=== PATIENT | female | born 1955 | race Caucasian/White ===

== ENCOUNTER 2022-05-29 08:07 | Outpatient (CLI) | payer OTHER, SELFPAY ==
--- NOTE | 2022-05-29 07:18 | BI_ITS ---
MAMMOGRAPHY - BILATERAL SCREENING REASON FOR EXAM: Female, 67 years old. Routine annual screening examination. PERTINENT HISTORY: Non-contributory. TECHNIQUE: Digital bilateral breast vandana (3D mammographic acquisition) in the CC and MLO projections. 2-D mediolateral oblique (MLO) and craniocaudad (CC) views of both breasts were obtained. CAD: Full Field Digital Mammography with Computer Added Detection was performed. COMPARISON: Screening mammogram from outside hospital from 05/16/2020, 05/02/2019. Diagnostic left breast ultrasound and mammogram from 05/23/2019. FINDINGS: Breast Composition: There are scattered areas of fibroglandular density. There are no dominant masses or suspicious calcifications. Stable scattered benign-appearing bilateral breast calcifications. No other significant abnormalities are identified. There has been no significant change since the prior study. BI/SCRN MAMM (CAD)W/VANDANA BILAT IMPRESSION: Stable bilateral screening mammogram. Yearly follow-up mammogram recommended. (A) ASSESSMENT CATEGORY: BIRADS Category 2: Benign. A letter regarding these results will be sent to the patient by the facility within 30 days. Approximately 10% of breast cancers are not detected by mammography. A normal mammogram should not delay biopsy of a clinically suspicious abnormality. Electronically Signed: Akash Escobar, at 11:19 EST ,
== END 2022-05-29 23:59 | disposition home or self-care (01) ==
LOC: OPBI 08:07
PROVIDERS: PCP Family Medicine; Visit Provider Family Medicine
DX: Z12.31 Encounter for screening mammogram for malignant neoplasm of breast (principal)
CPT/HCPCS: 77063; 77067

== ENCOUNTER → 2022-08-17 | Outpatient (CLI) | payer OTHER, SELFPAY ==
--- NOTE | 2022-08-17 12:52 | RAD_ITS ---
EXAM: XR LEFT KNEE COMPLETE, 4 OR MORE VIEWS CLINICAL INDICATION: PAIN TECHNIQUE: Four or more views of the left knee. This report was created using Future Simple report generation technology. COMPARISON: None. FINDINGS: BONES/JOINTS: There is narrowing of the medial knee joint. There is a small suprapatellar joint effusion present. No acute fracture. No subluxation. Normal alignment. No sclerotic or destructive changes observed. SOFT TISSUES: Unremarkable. No soft tissue swelling or gas. No radiopaque foreign body. RAD/Knee 4 or More Views IMPRESSION: Mild degenerative changes with narrowing of the medial knee joint. There is a small suprapatellar joint effusion. There are no acute osseous abnormalities. Electronically Signed: Joss White MD at 16:42 EST ,
== END | disposition home or self-care (01) ==
LOC: MTRAD 12:50
PROVIDERS: PCP Family Medicine; Referring Provider Family Medicine; Visit Provider Family Medicine
DX: M25.562 Pain in left knee (principal)
CPT/HCPCS: 73564

== ENCOUNTER → 2022-09-02 | Outpatient (CLI) | payer OTHER, SELFPAY ==
[2022-09-02 17:30] LABS: Basophil# 0.08 X10^3/uL; Eosinophil# 0.37 X10^3/uL; Eosinophils% 4.6 % (0-5); Hemoglobin 15.4 g/dL (12.0-15.0); Lymphocyte % 25.1 % (19-41); Mean Corp Hgb Conc 33.5 g/dL (32-36); Mean Corpuscular Hgb 31.9 pg (27.0-32.0); Mean Corpuscular Volume 95.2 fL (81-99); Mean Platelet Vol. 11.2 fl (6.2-12.0); Monocyte# 0.52 X10^3/uL; Monocyte% 6.5 % (0-10); NRBC Flagged by Analyzer 0 % (0-5); Neutrophil # 4.97 X10^3/uL (2.7-7.7); Neutrophil % 62.5 % (47-70); Platelet Count 330 K/mm3 (150-450); RBC Distribution Width CV 13.1 % (11.6-14.6); RBC Distribution Width SD 46.1 fl (35.1-43.9); Red Blood Count 4.83 M/mm3 (4.2-5.4)
[2022-09-02 18:08] LABS: AST(SGOT) 20 U/L (15-37); Alanine Aminotransfer ALT/SGPT 34 U/L (13-56); Albumin, Serum 3.6 g/dL (3.2-5.0); Alkaline Phosphatase 61 U/L (45-117); Anion Gap 6 (5-15); BUN 20 mg/dL (7-18); BUN/Creat Ratio 24.5 RATIO (10-20); Calcium,Total 9.2 mg/dL (8.5-10.1); Chloride 102 mmol/L (98-107); Creatinine, Serum 0.82 mg/dL (0.55-1.02); EST Glomerular Filtration Rate 74 mL/min (>60); Est Glom Filt Rate - Afr Amer 90 mL/min (>60); Globulin 3.6 g/dL (2.2-4.2); Glucose 93 mg/dL (74-106); Potassium 4.4 mmol/L (3.5-5.1); Protein, Total 7.2 g/dL (6.4-8.2); Sodium Level 138 mmol/L (136-145)
[2022-09-02 18:13] LABS: International Normalized Ratio 1.1; Partial Thromboplast Time 34.8 Seconds (24.1-36.2); Prothrombin Time (Protime)PT. 13.8 SECONDS (11.7-14.9)
== END | disposition home or self-care (01) ==
LOC: BFHLAB 14:58
PROVIDERS: PCP Family Medicine; Visit Provider Family Medicine
DX: Z01.818 Encounter for other preprocedural examination (principal)
CPT/HCPCS: 36415; 80053; 85025; 85610; 85730

== ENCOUNTER 2022-09-08 05:54 | Day surgery (SDC) | payer OTHER, SELFPAY ==
[2022-09-08 06:24] VITALS: BP 138/81; PULSE 63; RESP 18; TEMP 36.3; O2SAT 97; BMI 39.1
[2022-09-08] MEDS: Lactated Ringers 1,000 ML 15 ML IV ×2 (06:28→09:03)
--- NOTE | 2022-09-08 07:12 | HP.PCM_ITS ---
History and Physical Date of Admission: 09/08/22 [facility] [address] [place] [address] OFFICE VISIT Date of Service:? 08/31/22 MR#: [id number] Acct: [id number] Name:NY EARLY Rep #: [id number] : 1955 ? ? Provider: Dr. Cory Olea, DO Age/Sex:? 67/F ? ? Location: [facility] Status: Signed Intake Vital Signs ? 06/11/1517:23 08/31/2307:05 Height 5 ft 2 in 5 ft 2 in Weight: ? 217 lb BMI ? 39.6 Intake Visit Reasons:?LEFT KNEE Chief Complaint: left knee Accompanied by: Self Allergies benazepril HCl [From Lotensin] Allergy (Verified 06/11/15 17:23) Rashsertraline HCl [From Zoloft] Adverse Reaction (Verified 06/11/15 17:23) Diarrhea Medications aspirin 81 mg chewable tablet 81 mg PO DAILY@0800 06/11/15 [History Confirmed 08/31/22] metoprolol tartrate 25 mg tablet 12.5 mg PO BID 06/11/15 [History Confirmed 08/31/22] simvastatin 20 mg tablet 20 mg PO QHS 06/11/15 [History Confirmed 08/31/22] amlodipine 2.5 mg tablet tablet PO 08/31/22 [History Confirmed 08/31/22] antiarthritic combination no.2 900 mg tablet (glucosamine-chondroitin) mg PO 08/31/22 [History Confirmed 08/31/22] ascorbate calcium (vitamin C) 500 mg tablet 500 mg PO DAILY 08/31/22 [History Confirmed 08/31/22] wigpmhhn-ojh-GF 200 mcg-vit K 100 mcg-lycop 500 [id number] capsule (Daily Multivitamin) cap PO 08/31/22 [History Confirmed 08/31/22] omega 4-xwz-xdw-fish oil 300 mg-1,000 mg capsule (Fish Oil) 1 cap PO DAILY 08/31/22 [History Confirmed 08/31/22] phentermine 8 mg tablet 8 mg PO ONCE 08/31/22 [History Confirmed 08/31/22] PFSH Surgical History?(Updated 08/31/22 @ 08:10 by Jennifer Redd) History of tubal ligation Social History?(Updated 08/31/22 @ 08:11 by Jennifer Redd) Smoking Status:? Former smoker quit date: 07/05/14 alcohol intake:? former year quit: 2008 HPI LEFT KNEE Details: Parts of this documentation were recorded by a scribe, this documentation accurately reflects the service provided and the decisions made by me, Dr. Cory Olea, DO 08/31/22 0752. [place] HANSON is a 67 year old F NEW patient here today for left knee injury. DOI: 07/29/22 She states that she was going upstairs and she forgot something so she twisted and felt/heard a pop in the knee and had instant pain. She states that since the injury she has had painful popping/locking of the knee. she can not fully bend the knee.? She has been wearing a knee brace constantly for support. She states that with knee flexion she feels like something is blocking her. She has xrays in the chart and an MRI on a disc here in the office for review. She has been taking Tylenol and ibuprofen for her pain since the injury. Denies any past surgery or injections of the left knee. She states the pain is worse lateral . Ortho Exam General General: Yes no acute distress Neurologic: Yes alert and Yes oriented x3 Psychologic: Yes reasonable and appropriate Right Knee Patella Translation: 1 Left Knee Date of injury: 07/29/22 Skin/Wound: Yes CDI, No ecchymosis, No erythema and Yes swelling Homans Sign: No 1+: Effusion Knee ROM: No ROM-Extension -20 to 0 (lacking 10) and No ROM-Flexion 0-140 (55) Examination: No med jt line tenderness, Yes Lat jt line tenderness, Yes Pain with flexion, Yes Mohan's Test, Yes Montilla's and No TTP Pes Anserine Stability: NML: Anterior Drawer, NML: Posterior Drawer, NML: Valgus 30 and NML: Varus 30 Apprehension with Lateral Translation: No Patella Translation: 1 Patella Grind: Yes KNEE: mild pain with medial patti Head: Normocephalic Atraumatic Chest: symmetrical rise, non-labored breathing, no audible wheeze Abdomen: no guarding, non-rigid Supplemental Info 08/26/2022 MRI left knee report from [facility]: Joint effusion suspected vertical tear posterior horn medial meniscus may be bucket-handle tear 08/17/2022 x-ray left knee: Medial joint space narrowing, mild trochlear spurring Coding Level of Care Code Off vis,new,level 3 Diagnoses Tear of medial meniscus of left knee? S83.242A Assessment and Plan Assessment and Plan (1) Tear of medial meniscus of left knee: ?Status:?Acute Plan Obtained X-rays of patient's left knee. Personally reviewed x-rays. There is no obvious fracture, dislocation, or lucency noted. Patient educated that she does have arthritis of the medial side of the knee and on her MRI she has a medial meniscus tear. Educated that she may benefit from a left knee medial partial meniscectomy. Reviewed the pre-operative plans with the patient. Risks and benefits of the procedure were fully explained, including but not limited to infection, neurovascular injury, continued pain, arthritis, stiffness, need for further surgery, re-injury, DVT, PE, general risks of anesthesia, and loss of limb or life. The patient understands all the risks and does wish to proceed with written consent. She would need to stop the ibuprofen and Aleve 7 days prior to surgery. She will be able to walk on the knee right away as tolerated. Will need medial clearance as she does have some cardiac history. Her PCP has her off work until Wednesday. She would like to remain off work until 2 weeks post op. ? Follow up 2 weeks post op or sooner if pain, swelling, numbness or associated symptoms, or concerns develop.? All questions answered. Patient in agreement of plan. 08/31/22 0930 <Electronically signed by Cory Olea DO> Date Cory Olea DO I have examined the patient and the H&P has been reviewed. There are no clinical changes since date of exam.
[2022-09-08] MEDS: Cefazolin 2 GM in 0.9% Normal Saline 100 ML IV (07:22)
[2022-09-08] MEDS: Bupiv/Epi 0.25% 30 ML Vial (07:44)
[2022-09-08] MEDS: Epinephrine (1 mg/ml) 1 MG/ML VIAL (07:45)
[2022-09-08] MEDS: MethylPREDNISolone Acetate 40 MG/ML Vial IM (08:22)
[2022-09-08] MEDS: Bupivacaine 0.25% 30 ML Vial (08:23)
--- NOTE | 2022-09-08 08:25 | OP.PCM_ITS ---
Operative Report Date of Procedure: 09/08/22 Preop diagnosis: Left knee medial meniscal tear Postoperative diagnosis: Left knee complex medial meniscus tear posterior horn, radial tear body lateral meniscus diffuse grade III chondromalacia medial compartment grade 2 the remainder of the knee Procedure: Left knee arthroscopic partial medial partial lateral meniscectomy Anesthesia: General Estimated blood loss: 5 mL Tourniquet time: 30 minutes 300 mmHg Complications: none Indication for procedure: 67-year-old female patient who has had ongoing left knee pain with mechanical symptoms who did have MRI evidence of medial meniscus tear and the patient did wish to proceed with an elective arthroscopic surgery to attempt to alleviate the symptoms. Risk benefits and alternatives of the procedure were reviewed including risk of bleeding infection nerve artery tissue damage need for further surgery continued pain and expected postoperative course. Procedure: The patient was met in the preoperative holding area. The operative extremity was identified by both patient and physician and family and marked. Patient was brought back to the operating room on a wheeled cart and transferred to the operating table in the supine position. Anesthesia was started. A well- padded tourniquet was placed on the operative extremity. A lower extremity leg mabry was secured to the operative extremity. The contralateral extremity was well-padded and the end of the bed was flexed to 90 degrees. The patient was prepped and draped in the usual sterile fashion. A timeout was called to ensure the proper patient, procedure, and extremity were being contemplated. 0.5% Marcaine with epinephrine was injected into the planned incisional areas under the skin only. An Esmarch was used to exsanguinate the extremity and the tourniquet was inflated. An 11 blade scalpel was used to make a stab incision in the anterior lateral portal. The arthroscope was inserted into the intercondylar notch and inflow and outflow tubes were attached. Arthroscopic visualization began. The medial compartment was entered. An 18-gauge spinal needle was used to establish the placement for anterior medial portal. An 11 blade scalpel was used to make a stab incision. Blunt probe was inserted followed by a meniscal probe. Immediately there was noted to be high grade 3 cartilage wear of the medial compartment both medial femoral condyle and medial tibial plateau General chondroplasty was performed of any loose cartilage fraying and partial synovectomy was performed for exposure there is no to be complex tear in the posterior horn medial meniscus that extended back nearly the entire depth of the meniscus. With use of arthroscopic biting instruments and shaver and ArthroCare wand partial medial meniscectomy was performed the ACL was found to be intact. The lateral compartment was entered there is no to be a discoid variant meniscus with a small radial tear of the body with use of a shaver partial lateral meniscectomy was performed till the tear was removed was noted to be grade 2 approaching grade 3 cartilage wear of the lateral compartment the arthroscope was switched to the medial portal to complete the procedure. The medial and lateral gutters were inspected and were free of loose bodies. The patellofemoral joint was inspected and grade 2 approaching grade 3 cartilage wear. There was good patellar tracking. The knee was thoroughly irrigated and drained. An intra-articular injection with 5 cc 0.5% Marcaine plain and 40 mg of Depo-Medrol was injected intra-articularly. The arthroscope was removed the portals were closed with 3-0 nylon arthroscopic stitches. Followed by Xeroform 4 x 4's ABDs web roll and an Magan wrap. The tourniquet was let down and the drapes were removed. All counts were correct. The patient was brought back to the PACU in stable condition.
--- NOTE | 2022-09-08 08:30 | DCINST_ITS ---
Discharge Instructions Diet Discharge Diet: No restrictions Activity Weight Bearing Status: Weight bearing as tolerated Dressing / Incision Additional Dressing/Incision Instructions:: Ice and elevate next 72 hours .keep dressing on clean and dry for 48 hours then may remove begin showering daily but do not submerge in tub or pool. After shower may apply Band-Aids . Encourage knee range of motion weightbearing as tolerated, use crutches until confident in knee then may discontinue. No strenuous activity. When not ambulating keep iced and elevated next 72 hours. Do not mix pain medication with recreational drugs or alcohol only take as prescribed can be addictive and abusive, call with any questions or concerns. Follow Up Care Please Follow Up With: Cory Olea DO When: 2 weeks Test Results: Test results from this visit will be discussed in further detail at your follow- up appointment, if applicable. Discharge Plan Admission Primary Reason for Your Visit: Left knee arthroscopy Attending Provider: Cory Olea Primary Care Provider: Sara Carrera Discharge Orders/Prescriptions Prescriptions: New oxycodone 5 mg tablet 5 - 10 mg PO Q4H PRN (Reason: pain) 7 Days Qty: 30 0RF No Action amlodipine 2.5 mg tablet 1 tablet PO DAILY phentermine 8 mg tablet 8 mg PO DAILY Rx Instructions: AM glucosamine-chondroitin 900 mg tablet 900 mg PO DAILY omega 9-hmu-caw-fish oil [Fish Oil] 300-1,000 mg capsule 1 cap PO DAILY ascorbate calcium (vitamin C) 500 mg tablet 500 mg PO DAILY Daily Multivitamin 200-100-500 mcg capsule 1 cap PO DAILY simvastatin 20 MG tablet 20 mg PO QHS aspirin 81 MG tablet,chewable 81 mg PO DAILY@0800 metoprolol tartrate 25 MG tablet 12.5 mg PO BID Referrals / Follow Up: Sara Carrera DO [Primary Care Provider] - Disposition Disposition (needs filled in before D/C Order can be placed): Home, Self Care
[2022-09-08 08:36] VITALS: BP 138/81; BP 156/90; PULSE 74; RESP 17; TEMP 36; O2SAT 92
[2022-09-08 08:50] VITALS: BP 126/80; BP 138/81; PULSE 72; RESP 16; O2SAT 95
[2022-09-08 09:00] VITALS: BP 128/61; BP 138/81; PULSE 66; RESP 16; O2SAT 93
[2022-09-08 09:15] VITALS: BP 128/65; BP 138/81; PULSE 62; RESP 16; TEMP 36.1; O2SAT 95
[2022-09-08] MEDS: oxyCODONE 5 MG Tablet PO (09:39)
[2022-09-08 10:59] VITALS: BP 138/81; BP 140/86; PULSE 65; RESP 16; TEMP 36.2; O2SAT 96
== END 2022-09-08 11:07 | disposition home or self-care (01) ==
LOC: SDC 05:55 → AC 05:56
PROVIDERS: PCP Family Medicine; Referring Provider Orthopaedic Surgery; Visit Provider Orthopaedic Surgery
PROC: (CPT 29870; principal; 2022-09-08 07:10)
DX: S83.242A Other tear of medial meniscus, current injury, left knee, initial encounter (principal); Z87.891 Personal history of nicotine dependence; X50.1XXA Overexertion from prolonged static or awkward postures, initial encounter; E78.00 Pure hypercholesterolemia, unspecified; I10 Essential (primary) hypertension; G47.30 Sleep apnea, unspecified; Z99.89 Dependence on other enabling machines and devices; Z87.19 Personal history of other diseases of the digestive system; Z92.241 Personal history of systemic steroid therapy
CPT/HCPCS: 29880; 01400; J7120; J2405

== ENCOUNTER → 2022-10-24 | Outpatient (CLI) | payer OTHER, SELFPAY ==
[2022-10-24 10:46] LABS: Cholesterol 198 mg/dL (200); High Density Lipoprotein 73 mg/dL; Triglycerides 190 mg/dL; Very Low Density Lipoprotein 38 mg/dL (5-40)
[2022-10-26 08:23] LABS: Vitamin D,25 Hydroxy 42.4 ng/mL
== END | disposition home or self-care (01) ==
LOC: LAB 09:46
PROVIDERS: PCP Family Medicine; Visit Provider Family Medicine
DX: E78.2 Mixed hyperlipidemia (principal); E55.9 Vitamin D deficiency, unspecified
CPT/HCPCS: 36415; 80061; 82306

== ENCOUNTER → 2023-06-04 | Outpatient (CLI) | payer OTHER, SELFPAY ==
--- NOTE | 2023-06-04 09:48 | BI_ITS ---
MAMMOGRAPHY - BILATERAL SCREENING REASON FOR EXAM: Female, 68 years old. Routine annual screening examination. PERTINENT HISTORY: Non-contributory. TECHNIQUE: Digital bilateral breast vandana (3D mammographic acquisition) in the CC and MLO projections. 2-D mediolateral oblique (MLO) and craniocaudad (CC) views of both breasts were obtained. CAD: Full Field Digital Mammography with Computer Added Detection was performed. COMPARISON: Comparison is made with prior mammogram dated May 29, 2022. FINDINGS: Breast Composition: There are scattered areas of fibroglandular density. There are no dominant masses or suspicious calcifications. Stable small benign-appearing bilateral axillary lymph nodes. No other significant abnormalities are identified. There has been no significant change since the prior study. BI/SCRN MAMM (CAD)W/VANDANA BILAT IMPRESSION: Stable bilateral screening mammogram. Yearly follow-up mammogram recommended. (A) ASSESSMENT CATEGORY: BIRADS Category 2: Benign. A letter regarding these results will be sent to the patient by the facility within 30 days. Approximately 10% of breast cancers are not detected by mammography. A normal mammogram should not delay biopsy of a clinically suspicious abnormality. [id number] Electronically Signed: Gentry Mcclain MD at 10:55 EST ,
== END | disposition home or self-care (01) ==
PROVIDERS: PCP Family Medicine; Visit Provider Family Medicine
DX: Z12.31 Encounter for screening mammogram for malignant neoplasm of breast (principal)
CPT/HCPCS: 77063; 77067

== ENCOUNTER 2023-12-05 13:35 | Emergency (ER) | payer OTHER, SELFPAY ==
[2023-12-05 13:36] VITALS: BP 176/85; PULSE 74; RESP 16; TEMP 36; O2SAT 97; BMI 40.3
--- NOTE | 2023-12-05 14:27 | RAD_ITS ---
STUDY: XR Chest 1 View 12/05/2023 2:40 PM REASON FOR EXAM: Female, 68 years old. cough COMPARISON: 06/11/2015 TECHNIQUE: XR Chest 1 View FINDINGS: There is no demonstrated pleural abnormality. Normal heart size. Normal mediastinum. Normal frederick. Prominent appearing increased interstitial lung markings. Normal visualized pulmonary arteries. There is atherosclerotic calcification of the aortic arch with tortuosity. There are diffuse degenerative changes of the visualized thoracic spine. There is degenerative osteoarthritis of the bilateral shoulders. There are no acute findings of the upper abdomen. RAD/Chest 1 View (Portable) IMPRESSION: There are no acute findings. Electronically Signed: Marc Buckley MD at 14:59 EDT ,
--- NOTE | 2023-12-05 14:41 | EX.ED.GENINJ ---
HPI History of Present Illness Chief Complaint: Chest Other Narrative Narrative: 68-year-old female presenting with her throat burning. She has a foreign body sensation. She tried to take a probiotic pill last evening and it got stuck in her throat. She states it felt irritated. This morning she states it came out and what looked like a blob. Patient is not having any shortness of breath. She does have a little bit of a cough since last night. She is able to drink fluids and eat without difficulty. She is tolerating her own secretions. [facility] Medical History History of steroid therapy History of IBS Former smoker Sleep apnea CPAP (continuous positive airway pressure) dependence History of irregular heartbeat Hypertension Home Medications ?Medication ?Instructions ?Recorded ?Last Taken ?Type aspirin 81 mg chewable tablet 81 mg PO DAILY@0800 06/11/15 06/11/15 History simvastatin 20 mg tablet 20 mg PO QHS 06/11/15 06/10/15 History antiarthritic combination no.2 900 900 mg PO DAILY 08/31/22 Unknown History mg tablet (glucosamine-chondroitin) ascorbate calcium (vitamin C) 500 500 mg PO DAILY 08/31/22 Unknown History mg tablet uqvpydlr-hlk-KF 200 mcg-vit K 100 1 cap PO DAILY 08/31/22 Unknown History mcg-lycop 500 [id number] capsule (Daily Multivitamin) omega 7-nau-mtb-fish oil 300 1 cap PO DAILY 08/31/22 Unknown History mg-1,000 mg capsule (Fish Oil) cyclobenzaprine 5 mg tablet 5 mg PO TID PRN 11/25/22 Unknown History phentermine 37.5 mg tablet mg PO 01/06/23 Unknown History ibuprofen 200 mg capsule 200 mg PO Q6H PRN 05/10/23 Unknown History meloxicam 15 mg tablet 15 mg PO DAILY Pain #14 tabs 06/11/23 Unknown Rx amlodipine 5 mg tablet 5 mg PO DAILY 12/05/23 Unknown History metoprolol tartrate 50 mg tablet 50 mg PO BID 12/05/23 Unknown History Allergy/AdvReac Type Severity Reaction Status Date / Time benazepril HCl (From Allergy Rash Verified 12/05/23 13:37 Lotensin) sertraline HCl (From Zoloft) AdvReac Diarrhea Verified 12/05/23 13:37 Surgical History History of bilateral cataract extraction History of tubal ligation Social History Smoking Status: Former smoker quit date: 07/05/14 alcohol intake: former year quit: 2008 ROS ROS ED Constitutional Constitutional ED: Denies chills, fever(s) or sweats Eyes Eyes: Denies blurry vision or change in vision ENT ENT ED: Reports sore throat; Denies ear pain Cardiovascular Cardiovascular: Denies chest pain, palpitations or racing heartbeat Respiratory/Chest Respiratory/Chest: Denies cough, dyspnea or sputum Gastrointestinal Gastrointestinal: Denies abdominal pain, constipation, diarrhea, nausea or vomiting Genitourinary Genitourinary ED: Denies dysuria, hematuria or urinary frequency Musculoskeletal Musculoskeletal: Denies arthralgias, myalgias or neck pain Integumentary Denies abscess, Abrasions or rash Neurologic Neurologic: Denies headache(s), paresthesias or weakness Psychiatric Psychiatric: Denies anxiety, depression, suicidal ideation or suicidal thoughts Endocrine Endocrinology: Denies polydipsia or polyuria EXAM Physical Exam Const Vital Signs: 12/05/23 13:36 12/05/23 13:46 Temperature 96.8 F L Temperature Source Temporal Pulse Rate 74 Respiratory Rate 16 Respiratory Effort Normal Non-Labored Blood Pressure 176/85 H Blood Pressure Mean 115 Pulse Ox 97 Oxygen Delivery Method Room Air Positive well nourished General Appearance ED: NAD HEENT HEENT Narrative: No stridor. atraumatic Eyes PERRL and EOMs intact bilaterally Chest Wall inspection of chest normal and palpation of chest normal Resp normal respiratory effort and clear to auscultation bilaterally Auscultation: Negative for rales, rhonchi or wheezes Cardio regular rhythm GI normal to inspection, nondistended, normoactive bowel sounds Neuro oriented x3 and CN's II-XII intact bilaterally Motor Exam: strength 5/5 throughout Psych mental status grossly normal and thought process normal Skin no rashes or lesions noted MDM MDM MDM Narrative Medical decision making narrative: 68-year-old female presenting with sore throat and irritation. She states she had a pill stuck in her throat for the evening. She is not having shortness of breath. She is 97% on room air. Heart rate 74, respirate 16. Afebrile. On examination her lungs are clear to auscultation bilaterally. There is no stridor noted on examination. She is not dyspneic. She request a chest x-ray because her family told her she might have aspiration pneumonia. Chest x-ray on my interpretation shows no acute process. Radiology interprets this and agrees. Counseled patient she might have some irritation to the esophagus for couple of days. Return precautions were discussed. Impression: 1. Globus hystericus Lab Data Attestation: I reviewed the patient's lab results. Radiography Diagnostic Testing: Clinical Impression(s) from Imaging Studies Chest X-Ray 12/05/23 14:27 IMPRESSION: There are no acute findings. Electronically Signed: Marc Buckley MD at 14:59 EDT Reading Location ID and State: [facility] [place] / [place] , Service support , Discharge Plan Triage Chief Complaint: Chest Other ED Provider: Adi Braswell Dx/Rx/DC Orders Prescriptions: No Action glucosamine-chondroitin 900 mg tablet 900 mg PO DAILY omega 4-one-dat-fish oil [Fish Oil] 300-1,000 mg capsule 1 cap PO DAILY ascorbate calcium (vitamin C) 500 mg tablet 500 mg PO DAILY Daily Multivitamin 200-100-500 mcg capsule 1 cap PO DAILY cyclobenzaprine 5 mg tablet 5 mg PO TID PRN phentermine 37.5 mg tablet PO ibuprofen 200 mg capsule 200 mg PO Q6H PRN simvastatin 20 MG tablet 20 mg PO QHS aspirin 81 MG tablet,chewable 81 mg PO DAILY@0800 amlodipine 5 mg tablet 5 mg PO DAILY metoprolol tartrate 50 mg tablet 50 mg PO BID meloxicam 15 mg tablet 15 mg PO DAILY Qty: 14 0RF Rx Instructions: Do not take in conjunction with other NSAIDs. Tylenol is okay. Primary Care Provider: Sara Carrera Referrals: Sara Carrera DO [Primary Care Provider] - Print Language: French
[2023-12-05 15:35] VITALS: BP 154/78; PULSE 78; RESP 18; TEMP 36.1; O2SAT 96
== END 2023-12-05 15:40 | disposition home or self-care (01) ==
PROVIDERS: Emergency Provider Student in an Organized Health Care Education/Training Program; PCP Family Medicine; Visit Provider Student in an Organized Health Care Education/Training Program
DX: F45.8 Other somatoform disorders (principal); Z87.891 Personal history of nicotine dependence; G47.30 Sleep apnea, unspecified; Z99.89 Dependence on other enabling machines and devices; I10 Essential (primary) hypertension; Z79.82 Long term (current) use of aspirin; Z79.899 Other long term (current) drug therapy; Z98.51 Tubal ligation status; Z98.41 Cataract extraction status, right eye; Z98.42 Cataract extraction status, left eye
CPT/HCPCS: 71045; 93005; 99282

== ENCOUNTER → 2024-01-07 | Outpatient (CLI) | payer OTHER, SELFPAY ==
--- NOTE | 2024-01-07 12:40 | CDU_ITS ---
Reason For Study: Dizziness Rt. Velocities/BP Lt. Velocities/BP Prox CCA 56.3/17.6 cm/sec. Prox CCA 80.6/17.9 cm/sec. Mid CCA 55.4/19.5 cm/sec. Mid CCA 67.6/23.2 cm/sec. Dist CCA 56.3/21.4 cm/sec. Dist CCA 58.2/18.5 cm/sec. Prox ICA 60.1/21.4 cm/sec. Prox ICA 103.4/41.3 cm/sec. Mid ICA 55.4/21.4 cm/sec. Mid ICA 56.7/27.0 cm/sec. Dist ICA 64.8/33.6 cm/sec. Dist ICA 74.3/29.2 cm/sec. Rt. ICA/CCA = 1.2. Lt. ICA/CCA = 1.5. Prox ECA 47.8/11.0 cm/sec. Prox ECA 86.9/12.1 cm/sec. Rt. Vert. 18.0/8.1 cm/sec. Lt. Vert. 24.5/9.9 cm/sec. Right Extracranial There is heterogeneous, irregular atherosclerotic plaque noted in the right common carotid artery. There is heterogeneous, irregular atherosclerotic plaque noted in the right internal carotid artery. There is intimal thickening but no significant atherosclerotic plaque noted in the right external carotid artery. Antegrade flow is noted in the right vertebral artery. Left Extracranial There is intimal thickening but no significant atherosclerotic plaque noted in the left common carotid artery. There is heterogeneous, irregular atherosclerotic plaque noted in the left internal carotid artery. There is heterogeneous, irregular atherosclerotic plaque noted in the left external carotid artery. The atherosclerotic plaque causes acoustic shadowing. Antegrade flow is noted in the left vertebral artery. Procedure Carotid Duplex [id number]. This is a Carotid Duplex examination using B-mode, color flow and specral Doppler. The exam was diagnostic. Exam performed in department. VL/Carotid Duplex Ultrasound Interpretation Summary Mild (<50%) stenosis right extracranial internal carotid. Mild (<50%) stenosis left extracranial internal carotid. Patent and antegrade vertebrals bilaterally. Ordering Physician: Sara Carrera Referring Physician: Sara Carrera Performed By: Serge Ogden RVT
== END | disposition home or self-care (01) ==
PROVIDERS: PCP Family Medicine; Referring Provider Family Medicine; Visit Provider Family Medicine
DX: R42 Dizziness and giddiness (principal); R09.89 Other specified symptoms and signs involving the circulatory and respiratory systems; I65.22 Occlusion and stenosis of left carotid artery; I10 Essential (primary) hypertension
CPT/HCPCS: 93880

== ENCOUNTER → 2024-05-27 | Outpatient (CLI) | payer MEDICARE, SELFPAY ==
--- NOTE | 2024-05-27 08:35 | MRI_ITS ---
STUDY: MRI LUMBAR SPINE WITHOUT CONTRAST REASON FOR EXAM: Female, 69 years old. Low back pain. TECHNIQUE: Standardized fat and water weighted pulse sequences were obtained in the sagittal and axial planes. COMPARISON: CT abdomen and pelvis with contrast 11/26/2012. Lumbar spine radiographs 04/25/2024. FINDINGS: T10-T11: (Sagittal only). T10 inferior endplate is not included. Normal T11 superior endplate. Normal disc height, hydration and morphology. No ventral extradural defect. Normal central canal. Bilateral intervertebral neuroforamina are not included in the images. T11-T12 and T12-L1: (Sagittal only). Normal endplates. Normal disc height, hydration and morphology. No ventral extradural defects. Normal central canal and bilateral intervertebral neural foramina. Normal lumbar lordosis. There is no substantial scoliosis. Normal conus medullaris that terminates at the T12-L1 disc space level. L1-2: Normal endplates. Minimal disc space height narrowing. Prominent midline ventral extradural defect behind the posterior inferior corner of L1 vertebral body may represent small disc protrusion. Normal facet joints. Capacious central canal. Normal bilateral lateral recesses. Normal bilateral intervertebral neuroforamina. L2-3: Normal endplates. Normal disc height, hydration and morphology. Normal bilateral facet joints. Normal central canal and bilateral lateral recesses. Normal bilateral intervertebral neural foramina. L3-4: Normal endplates. Normal disc height, hydration and morphology. Normal facet joints. Prominent dorsal epidural lipomatosis. Moderate central canal stenosis with an AP canal diameter of 7 mm. Normal bilateral lateral recesses. Normal bilateral intervertebral neuroforamina. L4-5: Normal endplates. Normal disc height, hydration and morphology. Moderate bilateral degenerative facet arthropathy. Mild dorsal epidural lipomatosis. Pronounced central canal stenosis with an AP canal diameter of 3 mm. Mild stenosis of the bilateral lateral recesses. Normal bilateral intervertebral neuroforamina. L5-S1: Normal endplates. Normal disc height, hydration and morphology. Moderate bilateral degenerative facet arthropathy. Normal central canal and bilateral lateral recesses. Normal bilateral intervertebral neuroforamina. Normal visualized sacral ala. Normal visualized paraspinous soft tissue structures. MRI/Spine Lumbar (Routine) IMPRESSION: 1. Pronounced central canal stenosis at L4-L5 disc space level with an AP canal diameter of 3 mm secondary to developmentally short pedicles, mild dorsal epidural lipomatosis, asymmetric posterior ligamenta flava hypertrophy and moderate bilateral degenerative facet arthropathy. 2. Small posterior midline cephalad disc protrusion at L1-L2 disc space level but no associated spinal stenosis or nerve root displacement. This is of questionable clinical significance. This was also present on CT abdomen and pelvis of 11/26/2012. 3. Moderate central canal stenosis at L3-L4 disc space level with an AP canal diameter of 7 mm secondary to developmentally short pedicles and prominent dorsal epidural lipomatosis. 4. Moderate bilateral L5-S1 degenerative facet arthropathy. No associated spondylolisthesis that was present on lumbar spine radiographs of 04/25/2024. Electronically Signed: Paco Sue MD at 8:56 EST ,
== END | disposition home or self-care (01) ==
PROVIDERS: PCP Family Medicine; Referring Provider Student in an Organized Health Care Education/Training Program; Visit Provider Student in an Organized Health Care Education/Training Program
DX: M43.10 Spondylolisthesis, site unspecified (principal)
CPT/HCPCS: 72148

== ENCOUNTER → 2024-06-12 | Outpatient (CLI) | payer MEDICARE, SELFPAY ==
--- NOTE | 2024-06-12 09:12 | BI_ITS ---
MAMMOGRAPHY - BILATERAL SCREENING REASON FOR EXAM: Female, 69 years old. Routine annual screening examination. PERTINENT HISTORY: Non-contributory. TECHNIQUE: Digital bilateral breast vandana (3D mammographic acquisition) in the CC and MLO projections. 2-D mediolateral oblique (MLO) and craniocaudad (CC) views of both breasts were obtained. CAD: Full Field Digital Mammography with Computer Added Detection was performed. COMPARISON: Comparison is made with prior study dated June 04, 2023 and May 29, 2022. FINDINGS: Breast Composition: There are scattered areas of fibroglandular density. There are no dominant masses or suspicious calcifications. Stable bilateral fat-containing axillary lymph nodes. No other significant abnormalities are identified. There has been no significant change since the prior study. BI/SCRN MAMM (CAD)W/VANDANA BILAT IMPRESSION: Stable bilateral screening mammogram. Yearly follow-up mammogram recommended. (A) ASSESSMENT CATEGORY: BIRADS Category 2: Benign. A letter regarding these results will be sent to the patient by the facility within 30 days. Approximately 10% of breast cancers are not detected by mammography. A normal mammogram should not delay biopsy of a clinically suspicious abnormality. [id number] Electronically Signed: Gentry Mcclain MD at 10:17 EST ,
== END | disposition home or self-care (01) ==
PROVIDERS: PCP Family Medicine; Referring Provider Family Medicine; Visit Provider Family Medicine
DX: Z12.31 Encounter for screening mammogram for malignant neoplasm of breast (principal)
CPT/HCPCS: 77063; 77067

== ENCOUNTER → 2024-07-13 | Outpatient (CLI) | payer MEDICARE, SELFPAY ==
--- NOTE | 2024-07-13 13:09 | CT_ITS ---
CT LEFT LOWER EXTREMITY WITH 3-D IMAGING CLINICAL INDICATION: Templating for left TKA. TECHNIQUE: Axial CT images of the left lower extremity (from left hip, left knee, and left ankle) was performed without IV contrast material. Coronal and sagittal reformats were provided. The protocol utilizes one or more of the following dose reduction techniques: automated exposure control, adjustment of mA and/or kV according to patient size, and/or use of iterative reconstruction technique. RADIATION DOSAGE (If Supplied By Facility): CTDIvol = ( 27.95 ) mGy, DLP = ( 1907.28 ) mGycm COMPARISON: Left knee radiographs dated 03/20/2024. FINDINGS: Bones: Normal left hip joint. There is tricompartment degenerative arthrosis of the left knee, most severe in the medial femorotibial compartment where there is joint space narrowing, marginal osteophyte formation, subchondral sclerosis, and subchondral cyst formation. Normal left ankle. Osseous structures are intact without evidence of fracture or dislocation. No lytic or blastic osseous masses. Soft Tissues: There is a small left knee joint effusion. There is mild chronic sigmoid reticulosis without acute diverticulitis. The deep soft tissue structures are otherwise unremarkable. The superficial soft tissues are unremarkable without evidence of edema, hematoma, or foreign body. CT/Extremity Lower without Contra IMPRESSION: Tricompartment degenerative arthrosis of the left knee, most severe in the medial femorotibial compartment. Small left knee joint effusion. Electronically Signed: Isaac Bean MD at 14:24 EST ,
== END | disposition home or self-care (01) ==
PROVIDERS: PCP Family Medicine; Referring Provider Orthopaedic Surgery; Visit Provider Orthopaedic Surgery
DX: M17.12 Unilateral primary osteoarthritis, left knee (principal)
CPT/HCPCS: 73700

== ENCOUNTER 2024-07-25 05:39 | Day surgery (SDC) | payer MEDICARE, SELFPAY ==
--- NOTE | 2024-07-13 13:09 | EKG12_ITS ---
Test Reason : PREOP Blood Pressure : */* mmHG Vent. Rate : 61 BPM Atrial Rate : 61 BPM P-R Int : 162 ms QRS Dur : 86 ms QT Int : 424 ms P-R-T Axes : 72 86 75 degrees QTcB Int : 426 ms Normal sinus rhythm Low voltage QRS Borderline ECG Confirmed by Jerald Valenzuela ([id number]), movie editor GENOVEVA JUNE ([id number]) on 07/14/2024 5:58:09 AM Referred By: Cory Olea Confirmed By: Jerald Valenzuela
[2024-07-13 14:37] LABS: Absolute Lymphocyte Count 2.12 X10^3/uL (0.83-4.51); Absolute Neutrophil Count 4.7 X10^3/uL (2.0-7.7); Basophil# 0.09 X10^3/uL; Basophil% 1.1 % (0-1); Eosinophil# 0.33 X10^3/uL; Eosinophils% 4.2 % (0-5); Lymphocyte # 2.12 X10^3/ul (0.83-4.51); Lymphocyte % 26.9 % (19-41); Mean Corp Hgb Conc 33.3 g/dL (32-36); Mean Corpuscular Hgb 32.3 pg (27.0-32.0); Mean Platelet Vol. 10.7 fl (6.2-12.0); Monocyte% 7.6 % (0-10); NRBC Flagged by Analyzer 0 % (0-5); Neutrophil # 4.72 X10^3/uL (2.7-7.7); Neutrophil % 59.9 % (47-70); Platelet Count 381 K/mm3 (150-450); RBC Distribution Width CV 12.9 % (11.6-14.6); Red Blood Count 4.64 M/mm3 (4.2-5.4); White Blood Count 7.9 K/mm3 (4.4-11.0)
[2024-07-13 14:48] LABS: International Normalized Ratio 1.1; Partial Thromboplast Time 31.3 Seconds (24.1-36.2); Prothrombin Time (Protime)PT. 14.2 SECONDS (11.7-14.9)
[2024-07-13 15:33] LABS: Anion Gap 6 (5-15); BUN 19 mg/dL (7-18); BUN/Creat Ratio 17.3 RATIO (10-20); Calcium,Total 9.2 mg/dL (8.5-10.1); Chloride 103 mmol/L (98-107); EST Glomerular Filtration Rate 52 mL/min (>60); Est Glom Filt Rate - Afr Amer 63 mL/min (>60); Glucose 112 mg/dL (74-106); Potassium 4.3 mmol/L (3.5-5.1); Sodium Level 136 mmol/L (136-145)
[2024-07-13 15:35] LABS: Magnesium 2.3 mg/dL (1.6-2.6)
[2024-07-13 17:25] LABS: Hemoglobin A1c 5.5 % (3.8-5.6)
--- NOTE | 2024-07-14 23:46 | PAT.ANE_ITS ---
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 When Was Last Pacemaker Check QUESTION #4 FULL TEXT: You/Your Family Experience fever (hyperthermia) with Anesthesia Last Oral Intake Last Oral intake: Last Oral Intake NPO since Meds taken in AM with sips of water? Meds patient instructed to take am of surgery PONV PONV - economics teacher: PONV - economics teacher Female Yes 07/11/24 11:25 HX of Motion Sickness No 07/11/24 11:25 HX of N/V After Surgery No 07/11/24 11:25 Non-Smoker Yes 07/11/24 11:25 Duration of Surgery greater Yes 07/11/24 11:25 than 60 minutes Number of Risk Factors 3 07/11/24 11:25 PONV Score Moderate Risk 07/11/24 11:25 Height & Weight Height & Weight: Anesthesia: Height & Weight Height 5 ft 2 in 04/20/24 10:32 Respiratory Assessment Respiratory Assessment - economics teacher: Respiratory Tract Infection Hx - economics teacher Hx Respiratory Tract Infection No 07/11/24 11:25 STOP Sleep Apnea STOP Sleep Apnea - economics teacher: STOP Sleep Apnea - economics teacher Hx Hypertension Yes: CONTROLLED WITH MED 07/11/24 11:25 Hx Sleep Apnea Yes 07/11/24 11:25 CPAP Yes 07/11/24 11:25 BIPAP No 07/11/24 11:25 Do you snore loudly (louder than talking or can be heard Do you often feel tired/ fatigued/ sleepy during daytime? Has anyone observed you stop breathing during sleep? STOP Results Positive 07/11/24 11:25 QUESTION #5 FULL TEXT : Do you snore loudly (louder than talking or can be heard through closed doors)? Tobacco Use History Tobacco Use History - economics teacher: Tobacco Use History - economics teacher Tobacco Use Smoking Status Former smoker 07/11/24 11:25 Hx Tobacco Use No 07/11/24 11:25 Years Smoking Packs Smoked per Day Smoking Cessation Date was Yes - quit smoking within 15 07/11/24 11:25 within the last 15 years years Hx Smoking Cessation Date 07/05/18 07/11/24 11:25 Hx Smoking Cessation Counseling Hematologic Medial History Hematologic Hx - economics teacher: Hematologic Medical Hx - fiber heel piece shaper Hx of Blood Transfusion No 07/11/24 11:25 Hx of Transfusion in last 3 No 07/11/24 11:25 Months Date of Last Transfusion (if within last 3 months) Ever experience any problems No 07/11/24 11:25 with transfusion(s)? Specify any problems Hx of Preganancy in last 3 No 07/11/24 11:25 Months Nurse Filling Out Transfusion DSCHRIBER 07/11/24 11:25 & Questions: Date: 07/11/24 07/11/24 11:25 Time: 11:07/11/24 11:25 Patient unable to answer at this time (ie. confused, unrespo /Reproduction History /Reproductive History - economics teacher: /Reproductive Hx- economics teacher Hx Now No 07/11/24 11:25 Gestational Age (in weeks): EDC: Hx Hx Para Hx Section SAB No 07/11/24 11:25 PFSH Medical History Loss of hearing Post-menopausal Bladder disease Arthritis High cholesterol Injury of back Back pain Injury of head and neck Heartburn History of pain when walking History of edema History of echocardiogram History of stress test History of irregular heartbeat History of IBS Former smoker CPAP (continuous positive airway pressure) dependence Hypertension Home Medications ?Medication ?Instructions ?Recorded ?Last Taken ?Type aspirin 81 mg chewable tablet 81 mg PO DAILY@0800 06/11/15 06/11/15 History simvastatin 20 mg tablet 20 mg PO QHS 06/11/15 06/10/15 History antiarthritic combination no.2 900 900 mg PO BID 08/31/22 Unknown History mg tablet (glucosamine-chondroitin) mlgxunee-sgh-GD 200 mcg-vit K 100 1 cap PO DAILY 08/31/22 Unknown History mcg-lycop 500 zuu-qeezsg-A13 capsule (Daily Multivitamin) omega 7-ddu-fwy-fish oil 300 1 cap PO BID 08/31/22 Unknown History mg-1,000 mg capsule (Fish Oil) phentermine 37.5 mg tablet 37.5 mg PO DAILY 01/06/23 Unknown History meloxicam 15 mg tablet 15 mg PO DAILY Pain #14 tabs 06/11/23 Unknown Rx amlodipine 5 mg tablet 5 mg PO DAILY 12/05/23 Unknown History metoprolol tartrate 50 mg tablet 50 mg PO BID 12/05/23 Unknown History acetaminophen 500 mg capsule 500 mg PO Q6H PRN pain 07/11/24 Unknown History calcium 600 mg-D3 20 mcg-magnesium 2 tab PO BID 07/11/24 Unknown History 50 bz-Nn-kuidrc-amaya-boron tablet (Calcium 600-D3 Plus (mag-zinc)) cetirizine 10 mg capsule (Allergy 10 mg PO DAILY allergy symptoms 07/11/24 Unknown History Relief (cetirizine)) cholecalciferol (vitamin D3) 25 25 mcg PO DAILY 07/11/24 Unknown History mcg (1,000 unit) capsule (Vitamin D3) fluticasone propionate 50 1 spray intranasal DAILY PRN 07/11/24 Unknown History mcg/actuation nasal allergy symptoms spray,suspension (Flonase Allergy Relief) lidocaine 4 % topical cream 1 applic topical Q8H PRN pain 07/11/24 Unknown History melatonin 10 mg capsule 10 mg PO QHS 07/11/24 Unknown History valacyclovir 500 mg tablet 500 mg PO DAILY 07/11/24 Unknown History Allergy/AdvReac Type Severity Reaction Status Date / Time triamterene Allergy Intermediate Hives Verified 07/12/24 15:05 benazepril HCl (From Allergy Rash Verified 07/12/24 15:05 Lotensin) hazelnut AdvReac Intermediate Other Verified 07/12/24 15:05 naproxen AdvReac Intermediate Upset Verified 07/12/24 15:05 Stomach sertraline HCl (From Zoloft) AdvReac Diarrhea Verified 07/12/24 15:05 Surgical History History of esophagogastroduodenoscopy (EGD) Hx of colonoscopy Hx of left knee surgery History of bilateral cataract extraction History of tubal ligation Social History (Reviewed 01/08/25 @ 15:06 by Syeda Meléndez Smoking Status: Former smoker quit date: 07/05/14 alcohol intake: former year quit: 2008 Audit: Pertinent Findings Pertinent Findings EKG Perinent findings: July 13, 2024. Normal sinus rhythm. Recommendation Anesthesia Recommendation Anesthesia recommendation: OPTIMIZED for anesthesia
[2024-07-15 09:07] LABS: Fructosamine 213 umol/L (0-285)
[2024-07-25] VITALS (14 sets, daily range): BP systolic 97–131; BP diastolic 61–86; PULSE 59–82; RESP 14–18; TEMP 36.1–36.7; O2SAT 97–100; BMI 40.5
[2024-07-25] MEDS: Lactated Ringers 1,000 ML 15 ML IV (06:17)
[2024-07-25] MEDS: Magnesium 1 GM over 15 mins IV (06:18)
[2024-07-25] MEDS: Gabapentin 600 MG Tablet PO (06:36)
[2024-07-25] MEDS: Acetaminophen 500 MG Tablet 1000 MG PO ×2 (06:36→14:08)
[2024-07-25] MEDS: Celecoxib 200 MG Capsule 400 MG PO (06:37)
[2024-07-25] MEDS: Scopolamine 1mg/72hr Patch 1 PATCH TD (06:39)
--- NOTE | 2024-07-25 07:14 | PCM.PRE.AN2 ---
ASA Classification* ASA Classification ASA Classification: 3 Assessment & Plan Anesthesia* Anesthesia Assessment Anesthesia Assessment: Discussed sedation and/or anesthesia options, risks, benefits, and alternatives with patient/parents/legal guardian/POA. Questions invited. The patient/parents/legal guardian/POA seems to understand and agrees to proceed with anesthesia plan. Reviewed the physical assessment, medical history, allergy history and patient home medications list prior to surgery/procedure/anesthetic and documented any changes. Performed airway and anesthesia risk assessments. Anesthesia Type Anesthesia Type: Spinal History Source History Obtained from:: Patient and Chart Anesthesia Focused Assessment* Temperature: 97.7 F Pulse Rate: 64 Blood Pressure: 122/76 Respiratory Rate: 18 Pulse Ox: 97 Oxygen Delivery Method: Room Air Airway Assessment Mouth opens: >3 cm Mallampati Score: II Teeth Condition: Caps/Crowns (Patient states she may have some crowns they are tight.) and Missing (Patient has a couple missing teeth.) Neck Range of motion (ROM): Limited ROM Focused Labs Anesthesia Preop lab: CBC WBC 7.9 K/mm3 (4.4-11.0) 07/13/24 13:58 RBC 4.64 M/mm3 (4.2-5.4) 07/13/24 13:58 Hgb 15.0 g/dL (12.0-15.0) 07/13/24 13:58 Hct 45.0 % (37-47) 07/13/24 13:58 Plt Count 381 K/mm3 (150-450) 07/13/24 13:58 CHEMISTRY Potassium 4.3 mmol/L (3.5-5.1) 07/13/24 13:58 Sodium 136 mmol/L (136-145) 07/13/24 13:58 Magnesium 2.3 mg/dL (1.6-2.6) 07/13/24 13:57 BUN 19 mg/dL (7-18) H 07/13/24 13:58 Creatinine 1.10 mg/dL (0.55-1.02) H 07/13/24 13:58 Glucose 112 mg/dL (74-106) H 07/13/24 13:58 COAG PT 14.2 SECONDS (11.7-14.9) 07/13/24 13:58 Pre-Assessment Diagnosis/Proposed Procedure Planned Operative Procedure(s): LEFT TOTAL KNEE ARTHROPLASTY Anesthesia History Anesthesia History - anesthesiology physician: Anesthesia History - anesthesiology physician Hx Hospitalization No 07/11/24 11:25 Any Problems With Anesthesia No 07/11/24 11:25 Cholinesterase deficiency No 07/11/24 11:25 You/Your Family Experience No 07/11/24 11:25 fever (hyperthermia) with Relationship Recent Exposure to Contagious No 07/25/24 06:26 Disease Does patient have nerve No 07/11/24 11:25 stimulator Patient instructed to have device shut off --Does patient have Pacemaker No 07/25/24 06:26 or ICD? When Was Last Pacemaker Check QUESTION #4 FULL TEXT: You/Your Family Experience fever (hyperthermia) with Anesthesia Last Oral Intake Last Oral intake: Last Oral Intake NPO since 03:30 07/25/24 06:26 Meds taken in AM with sips of Yes 07/25/24 06:26 water? Meds patient instructed to take am of surgery Any additional information?: Yes NPO since: 03:30 (Patient took her Ensure 3:30 AM) Meds taken in AM with sips of water?: Yes PONV PONV - anesthesiology physician: PONV - anesthesiology physician Female Yes 07/11/24 11:25 HX of Motion Sickness No 07/11/24 11:25 HX of N/V After Surgery No 07/11/24 11:25 Non-Smoker Yes 07/11/24 11:25 Duration of Surgery greater Yes 07/11/24 11:25 than 60 minutes Number of Risk Factors 3 07/11/24 11:25 PONV Score Moderate Risk 07/11/24 11:25 Height & Weight Height & Weight: Anesthesia: Height & Weight Height 5 ft 2 in 07/25/24 06:26 Weight: 100.5 kg 07/25/24 06:26 Body Mass Index (BMI) 40.5 07/25/24 06:26 Respiratory Assessment Respiratory Assessment - anesthesiology physician: Respiratory Tract Infection Hx - anesthesiology physician Hx Respiratory Tract Infection No 07/11/24 11:25 STOP Sleep Apnea STOP Sleep Apnea - anesthesiology physician: STOP Sleep Apnea - anesthesiology physician Hx Hypertension Yes: CONTROLLED WITH MED 07/11/24 11:25 Hx Sleep Apnea Yes 07/11/24 11:25 CPAP Yes 07/11/24 11:25 BIPAP No 07/11/24 11:25 Do you snore loudly (louder than talking or can be heard Do you often feel tired/ fatigued/ sleepy during daytime? Has anyone observed you stop breathing during sleep? STOP Results Positive 07/11/24 11:25 QUESTION #5 FULL TEXT : Do you snore loudly (louder than talking or can be heard through closed doors)? Tobacco Use History Tobacco Use History - anesthesiology physician: Tobacco Use History - anesthesiology physician Tobacco Use Smoking Status Former smoker 07/11/24 11:25 Hx Tobacco Use No 07/11/24 11:25 Years Smoking Packs Smoked per Day Smoking Cessation Date was Yes - quit smoking within 15 07/11/24 11:25 within the last 15 years years Hx Smoking Cessation Date 07/05/18 07/11/24 11:25 Hx Smoking Cessation Counseling Hematologic Medial History Hematologic Hx - anesthesiology physician: Hematologic Medical Hx - cardiology manager Hx of Blood Transfusion No 07/11/24 11:25 Hx of Transfusion in last 3 No 07/11/24 11:25 Months Date of Last Transfusion (if within last 3 months) Ever experience any problems No 07/11/24 11:25 with transfusion(s)? Specify any problems Hx of Preganancy in last 3 No 07/11/24 11:25 Months Nurse Filling Out Transfusion DSCHRIBER 07/11/24 11:25 & Questions: Date: 07/11/24 07/11/24 11:25 Time: 11:27 07/11/24 11:25 Patient unable to answer at this time (ie. confused, unrespo /Reproduction History /Reproductive History - anesthesiology physician: /Reproductive Hx- anesthesiology physician Hx Now No 07/11/24 11:25 Gestational Age (in weeks): EDC: Hx Hx Para Hx Section SAB No 07/11/24 11:25 Active Medications Active Medications: Current Medications Generic Name Dose Route Start Last Admin Trade Name Freq PRN Reason Stop Dose Admin Acetaminophen 1,000 mg 07/25/24 07:30 07/25/24 06:36 Acetaminophen 500 Mg Tablet PO 07/25/24 07:31 1,000 mg X1 ONE Administration Dexamethasone Sodium Phosphate 10 mg 07/25/24 07:30 Dexamethasone 10 Mg/Ml Vial IV 07/25/24 07:31 X1 ONE Gabapentin 600 mg 07/25/24 07:30 07/25/24 06:36 Gabapentin 600 Mg Tablet PO 07/25/24 07:31 600 mg X1 ONE Administration Cefazolin Sodium 2 gm/ N/A 20 mls @ 400 mls/hr 07/25/24 07:30 IV 07/25/24 07:32 PREOP ONE Tranexamic Acid 1,000 mg/ 110 mls @ 660 mls/hr 07/25/24 07:30 Sodium Chloride IV 07/25/24 07:39 X1 ONE Tranexamic Acid 1,000 mg/ 110 mls @ 660 mls/hr 07/25/24 07:30 Sodium Chloride IV 07/25/24 07:39 X1 ONE Lactated Ringer's 1,000 mls @ 125 mls/hr 07/25/24 07:30 IV 07/25/24 15:29 .Q8H GARO Magnesium Sulfate 1 gm/ 102 mls @ 408 mls/hr 07/25/24 07:30 07/25/24 06:39 Dextrose IV 07/25/24 07:44 Infused X1 ONE Infusion Lactated Ringer's 1,000 mls @ 15 mls/hr 07/25/24 06:00 07/25/24 06:17 IV 07/28/24 00:39 15 mls/hr .Q48H GARO Administration Protocol Insulin Human Lispro 1 - 6 unit 07/25/24 07:30 Insulin Lispro 100 Unit/Ml Insuln.Pen SC Q4H PRN PRN BG>/= 180, SEE PROTOCOL Protocol Scopolamine HBr 1 patch 07/25/24 07:30 07/25/24 06:39 Scopolamine 1mg/72hr Patch TD 07/25/24 07:31 1 patch X1 ONE Administration PFSH Medical History Loss of hearing Post-menopausal Bladder disease Arthritis High cholesterol Injury of back Back pain Injury of head and neck Heartburn History of pain when walking History of edema History of echocardiogram History of stress test History of irregular heartbeat History of IBS Former smoker CPAP (continuous positive airway pressure) dependence Hypertension Home Medications ?Medication ?Instructions ?Recorded ?Last Taken ?Type aspirin 81 mg chewable tablet 81 mg PO DAILY@0800 06/11/15 07/18/24 History simvastatin 20 mg tablet 20 mg PO QHS 06/11/15 07/24/24 History antiarthritic combination no.2 900 900 mg PO BID 08/31/22 07/24/24 History mg tablet (glucosamine-chondroitin) zvjqeovw-wns-FS 200 mcg-vit K 100 1 cap PO DAILY 08/31/22 07/24/24 History mcg-lycop 500 vem-zfiwnq-F69 capsule (Daily Multivitamin) omega 0-rqj-sex-fish oil 300 1 cap PO BID 08/31/22 07/12/24 History mg-1,000 mg capsule (Fish Oil) phentermine 37.5 mg tablet 37.5 mg PO DAILY 01/06/23 07/18/24 History meloxicam 15 mg tablet 15 mg PO DAILY Pain #14 tabs 06/11/23 07/18/24 Rx amlodipine 5 mg tablet 5 mg PO DAILY 12/05/23 07/25/24 History metoprolol tartrate 50 mg tablet 50 mg PO BID 12/05/23 07/25/24 History acetaminophen 500 mg capsule 500 mg PO Q6H PRN pain 07/11/24 07/24/24 History calcium 600 mg-D3 20 mcg-magnesium 2 tab PO BID 07/11/24 07/24/24 History 50 es-Gx-rpnenr-amaya-boron tablet (Calcium 600-D3 Plus (mag-zinc)) cetirizine 10 mg capsule (Allergy 10 mg PO DAILY allergy symptoms 07/11/24 07/24/24 History Relief (cetirizine)) cholecalciferol (vitamin D3) 25 25 mcg PO DAILY 07/11/24 07/23/24 History mcg (1,000 unit) capsule (Vitamin D3) fluticasone propionate 50 1 spray intranasal DAILY PRN 07/11/24 07/24/24 History mcg/actuation nasal allergy symptoms spray,suspension (Flonase Allergy Relief) lidocaine 4 % topical cream 1 applic topical Q8H PRN pain 07/11/24 07/24/24 History melatonin 10 mg capsule 10 mg PO QHS 07/11/24 07/24/24 History valacyclovir 500 mg tablet 500 mg PO DAILY 07/11/24 07/24/24 History Allergy/AdvReac Type Severity Reaction Status Date / Time triamterene Allergy Intermediate Hives Verified 01/21/25 06:22 benazepril HCl (From Allergy Rash Verified 07/25/24 06:22 Lotensin) hazelnut AdvReac Intermediate Other Verified 07/25/24 06:22 naproxen AdvReac Intermediate Upset Verified 07/25/24 06:22 Stomach sertraline HCl (From Zoloft) AdvReac Diarrhea Verified 07/25/24 06:22 Surgical History History of esophagogastroduodenoscopy (EGD) Hx of colonoscopy Hx of left knee surgery History of bilateral cataract extraction History of tubal ligation Social History Smoking Status: Former smoker quit date: 07/05/14 alcohol intake: former year quit: 2008 Review of Systems (Anesthesia) ROS Narrative System reviewed and no additional complaints, except as documented.
--- NOTE | 2024-07-25 07:16 | PCM.HP.BLA ---
History and Physical Date of Admission: 07/25/24 [facility] [id number] [place] [address] OFFICE VISIT Date of Service: 07/12/24 MR#: [id number] Acct: [id number] Name: NY HANSON Rep #: [id number] : 1955 Provider: Dr. Cory Olea DO Age/Sex: 69/F Location: [facility] [email or web address] Status: Signed Intake Vital Signs 04/20/2410:32 07/12/2514:04 Height 5 ft 2 in 5 ft 2 in Weight: 219 lb 4 oz BMI 40.1 Intake Visit Reasons: left knee Chief Complaint: Left Knee Iovera Treatment Accompanied by: Self Is patient in pain?: Yes Pain scale (1-10): 5 Allergies triamterene Allergy (Intermediate, Verified 07/12/24 15:05) Hivesbenazepril HCl (From Lotensin) Allergy (Verified 07/12/24 15:05) Rashhazelnut Adverse Reaction (Intermediate, Verified 07/12/24 15:05) Othernaproxen Adverse Reaction (Intermediate, Verified 07/12/24 15:05) Upset Stomachsertraline HCl (From Zoloft) Adverse Reaction (Verified 07/12/24 15:05) Diarrhea Medications ?Medication ?Instructions ?Recorded ?Confirmed ?Type aspirin 81 mg chewable tablet 81 mg PO DAILY@0800 06/11/15 07/12/24 History simvastatin 20 mg tablet 20 mg PO QHS 06/11/15 07/12/24 History antiarthritic combination no.2 900 900 mg PO BID 08/31/22 07/12/24 History mg tablet (glucosamine-chondroitin) pghswylv-zch-GO 200 mcg-vit K 100 1 cap PO DAILY 08/31/22 07/12/24 History mcg-lycop 500 taa-pnqwso-T88 capsule (Daily Multivitamin) omega 3-sah-nwd-fish oil 300 1 cap PO BID 08/31/22 07/12/24 History mg-1,000 mg capsule (Fish Oil) phentermine 37.5 mg tablet 37.5 mg PO DAILY 01/06/23 07/12/24 History meloxicam 15 mg tablet 15 mg PO DAILY Pain #14 tabs 06/11/23 07/12/24 Rx amlodipine 5 mg tablet 5 mg PO DAILY 12/05/23 07/12/24 History metoprolol tartrate 50 mg tablet 50 mg PO BID 12/05/23 07/12/24 History acetaminophen 500 mg capsule 500 mg PO Q6H PRN pain 07/11/24 07/12/24 History calcium 600 mg-D3 20 mcg-magnesium 2 tab PO BID 07/11/24 07/12/24 History 50 zp-Cy-dlpezp-amaya-boron tablet (Calcium 600-D3 Plus (mag-zinc)) cetirizine 10 mg capsule (Allergy 10 mg PO DAILY allergy symptoms 07/11/24 07/12/24 History Relief (cetirizine)) cholecalciferol (vitamin D3) 25 25 mcg PO DAILY 07/11/24 07/12/24 History mcg (1,000 unit) capsule (Vitamin D3) fluticasone propionate 50 1 spray intranasal DAILY PRN 07/11/24 07/12/24 History mcg/actuation nasal allergy symptoms spray,suspension (Flonase Allergy Relief) lidocaine 4 % topical cream 1 applic topical Q8H PRN pain 07/11/24 07/12/24 History melatonin 10 mg capsule 10 mg PO QHS 07/11/24 07/12/24 History valacyclovir 500 mg tablet 500 mg PO DAILY 07/11/24 07/12/24 History Have you fallen in the past year?: No PFSH Medical History Loss of hearing Post-menopausal Bladder disease Arthritis High cholesterol Injury of back Back pain Injury of head and neck Heartburn History of pain when walking History of edema History of echocardiogram History of stress test History of irregular heartbeat History of IBS Former smoker CPAP (continuous positive airway pressure) dependence Hypertension Surgical History History of esophagogastroduodenoscopy (EGD) Hx of colonoscopy Hx of left knee surgery History of bilateral cataract extraction History of tubal ligation Social History Smoking Status: Former smoker quit date: 07/05/14 alcohol intake: former year quit: 2008 HPI left knee Details: This documentation accurately reflects the service provided and the decisions made by me, Dr. Cory Olea, DO 07/12/24 [id number]. Part of today?s visit was documented by [ ], acting as scribe. NY HANSON is a 69 year old F here today for left knee Iovera treatment for left total knee arthroplasty surgery DOS 07/25/2024. Ortho Exam General General: Yes no acute distress Neurologic: Yes alert and Yes oriented x3 Psychologic: Yes reasonable and appropriate Left Knee Skin/Wound: No ecchymosis, No erythema and No swelling Homans Sign: No Knee ROM: Yes ROM-Extension -20 to 0 and No ROM-Flexion 0-140 (112) Examination: No med jt line tenderness, No Lat jt line tenderness and No TTP Pes Anserine Patella Grind: No Head: Normocephalic Atraumatic Chest: symmetrical rise, non-labored breathing, no audible wheeze Abdomen: no guarding, non-rigid Office Procedures Iovera Procedure Details:: Preoperative diagnosis :chronic knee pain Postoperative diagnosis: Same Procedure: Cryotherapy with Iovera device to anterior femoral cutaneous nerve and 2 branches of the infrapatellar saphenous nerve. Three nerves in total. Description of procedure: Patient was brought back to the procedure room the operative extremity was identified by both patient and physician. Entire extremity was cleaned with alcohol. The superior inferior and medial lateral borders of the patella were marked followed by the center of the patella. We then measured 12 cm proximal to this and with the knee in flexion marked the medial and lateral edges of the patella continuing proximally to give us our proximal treatment line.This was our treatment line for the anterior femoral cutaneous nerve. A second treatment line was made 5 cm medial to the inferior pole of the patella and 5 cm distally. The treatment lines were then prepped with Betadine and 1 last time with alcohol. Lidocaine 1% with epi was injected subcutaneously along the treatment lines. Using the Iovera device on the marked treatment lines device was activated allowing it to freeze and defrost with 1 minute cycles. Once all 3 nerve branches were treated across the 2 treatment lines patient was cleaned and a light dressing with 4 x 4 and Magan wrap was applied. Patient tolerated the procedure without complication. Supplemental Info 03/20/2024 x-ray right knee: Advanced medial compartment arthrosis moderate patellofemoral 03/20/2024 x-ray left knee: Advanced medial compartment arthrosis moderate to severe patellofemoral. 04/19/2023 x-ray right knee: Moderate to severe medial joint space narrowing there is spurring noted in the lateral compartment mild spurring patellofemoral. 01/13/2023 MRI right knee [facility] [place]: Patellofemoral joint shows arthritic disease with diffuse chondral thinning. Lipoma present medial head of gastroc no meniscal pathology. Medial joint shows arthritic disease with chondral thinning and marginal osteophytes. Lateral joint shows mild arthritic disease with marginal osteophytes no ligamentous tear. 11/25/2022 x-ray right knee: There is moderate medial compartment arthrosis with joint space narrowing and subchondral sclerosis there is mild lateral joint spurring there is mild spurring of the patellofemoral joint 09/08/2022 operative report left knee arthroscopy: Postoperative diagnosis: Left knee complex medial meniscus tear posterior horn, radial tear body lateral meniscus diffuse grade III chondromalacia medial compartment grade 2 the remainder of the knee; Procedure: Left knee arthroscopic partial medial partial lateral meniscectomy 08/26/2022 MRI left knee report from [facility]: Joint effusion suspected vertical tear posterior horn medial meniscus may be bucket-handle tear 08/17/2022 x-ray left knee: Medial joint space narrowing, mild trochlear spurring Coding Level of Care Code Attention Keiko Diagnoses Chronic pain of left knee M25.562; G89.29 Laterality: left Assessment and Plan Assessment and Plan (1) Chronic knee pain: Status: Chronic Qualifiers: Laterality: left Qualified Code(s): M25.562 - Pain in left knee; G89.29 - Other chronic pain Orders: Orders Iovera Today M17.12 - Unilateral primary osteoarthritis, left knee Plan Risks, benefits and alternatives of surgery reviewed including but not limited to bleeding, infection, nerve, artery and/or tissue damage, fracture, VTE, mechanical feel of the knee, continued pain, stiffness and expected post-operative course. All of her questions were answered we did proceed with iovera today follow-up for surgery. Clinical Quality Measures Falls Risk Screening/Assistive Devices Have you fallen in the past year?: No 07/12/24 1604 <Electronically signed by Cory Olea DO> Date Cory Elder Signature: Date I have examined the patient and the H&P has been reviewed. There are no clinical changes since date of exam.
[2024-07-25 07:30] LABS: Bedside Glucose 109 mg/dL (74-106)
--- NOTE | 2024-07-25 07:30 | KNEE_PTH ---
PATIENT: NY HANSON LOC: [facility] [place] U#:[id number] AGE/SX: 69/F ROOM: RE07/25/[address]: Dr. Cory Olea DO : 1955 BED: DIS: 07/25/2024 SPEC #: [id number] RECD: 07/25/24 10:16 STATUS: MELINA REMariela #: [id number] TIFFANIE: 07/25/24 07:[address]: Cory Olea DEPT: SURGICAL PATHOLOGY RECD BY: Vanessa Berry ENTERED: 07/25/24 11:11 SP TYPE: TOTAL KNEE OTHR DR: Dr. Sara Carrera DO Tissues: Knee, NOS Procedures: Decalcification bone/plaque Surgery Specimen Level IV HEADER OPERATION: Left total knee replacement robotic arm assist PRE-OP DIAGNOSIS: Chronic knee pain TISSUE SUBMITTED: Bone and tissue left knee MICROSCOPIC DIAGNOSIS Bone and soft tissue, left knee, total knee replacement/resection: Pieces of bone with degenerative osteoarthritic changes. SJ:mr 07/28/2024 MICROSCOPIC DESCRIPTION Slides are reviewed. GROSS DESCRIPTION Received is one container designated bone and soft tissue left knee. The specimen consists of multiple fragments of leal-yellow bone measuring in aggregate 10 x 10 x 3 cm. No soft tissue is identified. A number of bony fragments contain articular surfaces consistent with tibial plateau and femoral condyle and displaying prominent osteophyte formation, eburnation and bone erosion. Product Grader sections are submitted in one cassette after decalcification. / TOM.mr 07/25/2024 TC:5 CPT: 99349, 23565
[2024-07-25] MEDS: dexAMETHasone 10 MG/ML Vial IV (07:55)
[2024-07-25] MEDS: Cefazolin 2 GM in Syringe 10 ML IV (07:55)
[2024-07-25] MEDS: TXA 1000mg in NS100 100ml (IVPB at Incision) 660 MG IV (07:55)
[2024-07-25] MEDS: TXA 1000mg in NS100 100ml (IVPB at Closure) 660 MG IV (08:24)
[2024-07-25] MEDS: 0.9% Normal Saline (Pres. free 10 ML Vial (09:11)
[2024-07-25] MEDS: Bupivacaine 0.5% PF 10 ML VIAL (09:11)
[2024-07-25] MEDS: dexAMETHasone 4 MG/ML Vial (09:11)
[2024-07-25] MEDS: Epinephrine (1 mg/ml) 1 MG/ML VIAL (09:11)
--- NOTE | 2024-07-25 10:01 | PCM.POST.ANE ---
Anesthesia: Postop Eval I Current Vital Signs Temperature: 97.4 F Pulse Rate: 82 Blood Pressure: 97/68 Respiratory Rate: 14 Pulse Ox: 100 Oxygen Delivery Method: Simple Mask Oxygen Flow Rate (L/min): 6 Assessment Airway patent: Yes Spontaneous unlabored respirations: Yes Mental status: Awake nausea: No Vomiting: No Anesthesia Complication: No Fluid Hydration Crystalloid volume administer (ml): 1,600 Total IV fluid infused: 1,600 Progress Note Anesthesia document: Postop Eval 1 completed: Yes
--- NOTE | 2024-07-25 10:03 | OP.PCM_ITS ---
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 [employer] Department Manager: Mir Da Silva Tasks completed by assistant case manager: Opening & closing Type of Anesthesia: Spinal RN Documented Start/Stop Times: Operation Date: 07/25/24 07:30 Case Time Into Pre-Op 07/25/24 05:45 Anesthesia Start 07/25/24 07:44 Into Room 07/25/24 07:44 Procedure Start 07/25/24 08:11 Procedure End 07/25/24 09:47 Anesthesia End 07/25/24 09:58 Out of Room 07/25/24 09:58 Into Recovery 07/25/24 10:00 Procedure Start Time: 08:11 Procedure Stop Time: 09:47 Select all DRAINS/GRAFTS/IMPLANTS that apply: Implanted device Implanted device details: Triathlon Estimated Blood Loss: 150 Specimen collected: No Description of surgery: Preoperative diagnosis: [Left] knee DJD Postoperative diagnosis: [Same] Procedure: [Left] total knee arthroplasty CT guided Robotic Assisted Implant: [place] triathlon [press fit], femoral component size3, tibial baseplate size [4], [asymmetric] patella size 29, polyethylene X3 size [9] [CS] Anesthesia: [spinal] with adductor canal block Tourniquet time: 13 [minutes at 300 mmHg] Complications: None Condition: Stable to PACU Estimated blood loss: 175cc [Venetian Blind Cleaner Mir Da Silva. My physician assistant attorney general was a vital part of this case. He was important in appropriate retraction during the case, and protection of soft tissues during procedure. His intimate knowledge of the case and my steps aided in safe and expedient completion of the procedure as well as appropriate position of the extremity during the case. He was also vital in assisting with closure under my direct supervision.] Indication for procedure: This is a 69-year-old female with long standing degenerative joint disease of the knee who has failed conservative treatment and wished to proceed with elective total knee arthroplasty. Risk benefits and alternatives were reviewed including; risk of bleeding, infection, nerve artery and tissue damage, continued pain, postoperative stiffness, venous thromboembolism, need for postoperative rehabilitation, mechanical feel to the knee, and expected postoperative course. The pre- operative CT and templating was performed with component sizing. Procedure: The patient was met in the preoperative holding area. The operative extremity was identified by both patient and physician and was marked. Patient was met by anesthesia. An adductor canal block was placed by anesthesia [postoperatively] the patient was brought back to the operating room on a wheeled cart and transferred to the operating table in the supine position. Anesthesia was started. A well-padded tourniquet was placed on the operative extremity. The patient was prepped and draped in the usual sterile fashion. A timeout was called to ensure the proper patient procedure and extremity were being contemplated. An esmarch was used to exsanguinate the extremity. The tourniquet was inflated. A 10 blade scalpel was used to make a midline incision down through the skin and subcutaneous tissue. Skin retractors placed. Bovie and Aquamantis were used to perform meticulous hemostasis. full-thickness flaps were elevated medial and lateral along the joint capsule. A deep blade scalpel was used to perform a medial parapatellar arthrotomy. The knee was brought to full extension. A bovie was used to release the soft tissues off the most proximal aspect of the medial tibial plateau, a three-quarter inch curved osteotome was also used in this process. The infrapatellar fat pad was excised. [The suprapatellar fat pad was excised partially anteriorolateraly and portion the anterioromedial pad was elevated from the femur]. At this point our intra- articular femoral array was placed at a 45 degree angle proximal and posterior to the medial epicondyle. femoral checkpoint was placed at this time. [Our tibial array was placed partially intra incisional 1 stab incision was made for the inferior pin with a 15 blade scaple, and ] pins were placed and attached to the tibial array , tibial checkpoint was placed in the proximal tibial metaphysis. Tourniquet was let down. At this point registration solis were taken throughout the knee . Once the knee was registered we then tensioned the medial and lateral ligaments in extension and 90 degrees of flexion. We then used these numbers to adjust our components within parameters to balance the knee in both flexion and extension once this was done on our monitor we then proceeded with using the robotic arm to make our tibial plateau cut, anterior and posterior chamfer and distal femur cuts. we removed the cut fragments with the use of a bovie and Avery, we did use a lamina nursing specialist to insure we visualized and removed all posterior osteophytes and at this time also used the Aquamantis on the posterior joint capsule. we then trialed and achieved the desired plan with a well-balanced knee. we used the green probe to nura the corresponding tibial rotation based on our CT template. Lug holes were drilled in the femur the tibia preparation was completed with the appropriate sized base plate pinned based on previous rotation nura. An appropriate sized fin punch was used on the tibia [and 4 corner drill was used for the press fit component] and the patella was prepared by first using a caliper to ensure sufficient bone stock and a patellar reamer to remove the desired amount of bone. lug holes drilled for an [asymmetric poly]. We then brought the knee through range of motion with excellent patellar tracking. We thoroughly irrigated the knee. Trial components were removed a posterior capsular injection was preformed with our standard cocktail. In addition the aqua Mantis was also used to aid in hemostasis. Betadine rinse was allowed to sit and washed out completely. Components were [press-fit into place]. Aricept rinse was then used followed by several more liters of irrigation after it was allowed to sit. The joint capsule was closed with #1 Ethibond wrrzeb-rd-igcku's in the upper part of the arthrotomy and #1 Vicryl in the lower part of the arthrotomy. , Followed by 2-0 Vicryl in the subcutaneous tissues [with gerardo in the skin]. Arrays and chec kpoints were removed prior to closure all counts were correct stab incisions were closed with a staple standard dressing in the form of Mepilex AG for the main incision and a small Mepilex over the pin holes. Thigh-high LUI hose applied over top of dressing. Patient tolerated the procedure well and was directed to PACU in stable condition . [there were no intraoperative complications]. Surgical Findings: DJD knee Complications Complications: No
--- NOTE | 2024-07-25 10:06 | DCINST_ITS ---
Discharge Instructions Diet Discharge Diet: No restrictions (Minimize sweets and carbs as increased perioperative blood sugars can increase risk of infection) Activity Weight Bearing Status: Full weight bearing Dressing / Incision Call your doctor if you observe: Shortness of breath and Chest pain Additional Dressing/Incision Instructions:: Ice and elevate lower extremities 2 weeks while not ambulating. Ambulation is encouraged. Weight bearing as tolerated. Use assistive devise for stability. Encourage FULL knee extension and flexion 1 time EVERY time you get up and down and MULTIPLE times per day. No showering until 72 hours after surgery. May begin showering postop day #3. Remove the dressing prior to shower and gently wash with warm water and antibacterial soap then pat dry and place abdominal pad (or plain gauze) and LUI hose over top. This is to be done daily. Do not submerge for 3 weeks. If not showering daily after the initial 72 hours then you must clean incision and change dressing daily after the dressing comes off, must come off by 7 days postop. Do not allow animals near the incision area. Keep clean. Follow anti- coagulation recommendations as prescribed. Do not take any NSAIDs while on blood thinner. Do not take any additional narcotic pain medication other than what was prescribed on your surgery day without discussing with physician. Narcotic medication can be addictive. Do not drink alcohol while taking narcotics. Supplement narcotic prescription with acetaminophen 1000 mg 4 times a day. Start physical therapy. If you are not currently scheduled for physical therapy or you are unsure of appointment time please call office [facility] to arrange. Call Dr. Olea with any concerns. Follow Up Care Please Follow Up With: Cory Olea DO When: 2 weeks Test Results: Test results from this visit will be discussed in further detail at your follow- up appointment, if applicable. Discharge Plan Admission Primary Reason for Your Visit: Left total knee Attending Provider: Cory Olea Primary Care Provider: Sara Carrera Instructions Print Language: St Helenian Discharge Orders/Prescriptions Prescriptions: New acetaminophen 500 mg tablet 1,000 mg PO Q6H Qty: 90 0RF cephalexin 500 mg capsule 1,500 mg PO Q8H Qty: 6 0RF Rx Instructions: Take 2 tabs before you go to bed and 2 tabs after 5 AM morning after surgery when you wake up Eliquis 2.5 mg tablet 2.5 mg PO BID Qty: 30 0RF Rx Instructions: Begin morning after surgery. oxycodone 5 mg tablet 5 - 10 mg PO Q4H PRN (Reason: pain) 7 Days Qty: 60 0RF Continued glucosamine-chondroitin 900 mg tablet 900 mg PO BID Daily Multivitamin 200-100-500 mcg capsule 1 cap PO DAILY phentermine 37.5 mg tablet 37.5 mg PO DAILY simvastatin 20 MG tablet 20 mg PO QHS amlodipine 5 mg tablet 5 mg PO DAILY metoprolol tartrate 50 mg tablet 50 mg PO BID melatonin 10 mg capsule 10 mg PO QHS valacyclovir 500 mg tablet 500 mg PO DAILY Ca-D3-mag jh-blja-xpb-moisés-bor [Calcium 600-D3 Plus (mag-zinc)] 600 mg calcium- 20 mcg-50 mg tablet 2 tab PO BID Allergy Relief (cetirizine) 10 mg capsule 10 mg PO DAILY fluticasone propionate [Flonase Allergy Relief] 50 mcg/actuation spray,suspension 1 spray intranasal DAILY PRN (Reason: allergy symptoms) Rx Instructions: administer into each nostril lidocaine 4 % cream 1 applic topical Q8H PRN (Reason: pain) cholecalciferol (vitamin D3) [Vitamin D3] 25 mcg (1,000 unit) capsule 25 mcg PO DAILY Held omega 6-gcb-zfa-fish oil [Fish Oil] 300-1,000 mg capsule 1 cap PO BID Hold Instructions: Resume on 08/08/24. aspirin 81 MG tablet,chewable 81 mg PO DAILY@0800 Hold Instructions: Resume on 07/28/24. meloxicam 15 mg tablet 15 mg PO DAILY Qty: 14 0RF Hold Instructions: May resume after completion of blood thinner if needed Rx Instructions: Do not take in conjunction with other NSAIDs. Tylenol is okay. Discontinued acetaminophen 500 mg capsule 500 mg PO Q6H PRN (Reason: pain) Referrals / Follow Up: Sara Carrera DO [Primary Care Provider] - Disposition Disposition (needs filled in before D/C Order can be placed): Home, Self Care
--- NOTE | 2024-07-25 10:40 | RAD_ITS ---
STUDY: X-RAY - LEFT KNEE REASON FOR EXAM: Female, 69 years old. Postop PACU -- in PACU TECHNIQUE: 2 view(s) of the knee. COMPARISON: Comparison is made with prior study of March 20, 2024. FINDINGS: Normal visualized distal femur. Normal visualized proximal tibia and fibula. Normal proximal tibiofibular articulation. The patient is status post left total knee replacement. There is good alignment. Postoperative soft tissue changes. RAD/Knee 1 or 2 Views IMPRESSION: Status post left total knee replacement. There is good alignment. Postoperative soft tissue changes. Electronically Signed: Gentry Mcclain MD at 11:11 EST ,
[2024-07-25] MEDS: oxyCODONE 5 MG Tablet PO ×2 (11:55→16:53)
[2024-07-25] MEDS: Cefazolin 2 GM in Syringe IV (14:08)
--- NOTE | 2024-07-25 20:13 | POSTOPAN2_ITS ---
Anesthesia Postop Eval I Sum Postop Eval Completion status Anesthesia document: Postop Eval 1 completed: Yes Anesthesia Postop Eval I Summary Anesthesia Postop Eval I Summary: Anesthesia Postop Eval I: Assessment Summary Airway patent Yes 07/25/24 10:02 OVERAGE SHORTAGE AND DAMAGE CLERK.[email or web address] Spontaneous unlabored Yes 07/25/24 10:02 OVERAGE SHORTAGE AND DAMAGE CLERK.HBARR respirations Mental status Awake 07/25/24 10:02 OVERAGE SHORTAGE AND DAMAGE CLERK.HBARR nausea No 07/25/24 10:02 OVERAGE SHORTAGE AND DAMAGE CLERK.HBARR Vomiting No 07/25/24 10:02 OVERAGE SHORTAGE AND DAMAGE CLERK.HBARR Anesthesia Postop Eval I: Fluid Summary Crystalloid volume administer 1,600 07/25/24 10:02 OVERAGE SHORTAGE AND DAMAGE CLERK.HBARR (ml) Colloids volume administered ( ml) Blood Product volume administered (ml) Total IV fluid infused 1,600 07/25/24 10:02 OVERAGE SHORTAGE AND DAMAGE CLERK.HBARR Anesthesia Postop Eval I: Summary Notes Anesthesia Complication No 07/25/24 10:02 OVERAGE SHORTAGE AND DAMAGE CLERK.HBARR Anesthesia Complication Comment: Post-operative progress note Anesthesia: Postop Eval II Evaluation Mental status: Awake and Calm Pain Level: 1 nausea: No Vomiting: No Complications Anesthesia Complication: No
--- NOTE | 2024-07-25 20:13 | PCM.POSTANE2 ---
Anesthesia Postop Eval I Sum Postop Eval Completion status Anesthesia document: Postop Eval 1 completed: Yes Anesthesia Postop Eval I Summary Anesthesia Postop Eval I Summary: Anesthesia Postop Eval I: Assessment Summary Airway patent Yes 07/25/24 10:02 [email or web address] Spontaneous unlabored Yes 07/25/24 10:02 [email or web address] respirations Mental status Awake 07/25/24 10:02 [email or web address] nausea No 07/25/24 10:02 RIDE [email or web address] Vomiting No 07/25/24 10:02 [email or web address] Anesthesia Postop Eval I: Fluid Summary Crystalloid volume administer 1,600 07/25/24 10:02 [email or web address] (ml) Colloids volume administered ( ml) Blood Product volume administered (ml) Total IV fluid infused 1,600 07/25/24 10:02 [email or web address] Anesthesia Postop Eval I: Summary Notes Anesthesia Complication No 07/25/24 10:02 [email or web address] Anesthesia Complication Comment: Post-operative progress note Anesthesia: Postop Eval II Evaluation Mental status: Awake and Calm Pain Level: 1 nausea: No Vomiting: No Complications Anesthesia Complication: No
== END 2024-07-25 17:16 | disposition home or self-care (01) ==
LOC: SDC 05:41 → AC 05:41
PROVIDERS: Anesthesiology; PCP Family Medicine; Referring Provider Orthopaedic Surgery; Visit Provider Orthopaedic Surgery
PROC: 0SRD0JZ Replacement of Left Knee Joint with Synthetic Substitute, Open Approach (ICD-10-PCS; CPT 27447; principal; 2024-07-25 07:00)
DX: M17.12 Unilateral primary osteoarthritis, left knee (principal); Z87.891 Personal history of nicotine dependence; E78.00 Pure hypercholesterolemia, unspecified; I10 Essential (primary) hypertension; Z79.82 Long term (current) use of aspirin; Z98.51 Tubal ligation status; M25.562 Pain in left knee; G89.29 Other chronic pain; G47.30 Sleep apnea, unspecified; Z79.899 Other long term (current) drug therapy; Z99.89 Dependence on other enabling machines and devices
CPT/HCPCS: 27447; S2900; 64450; 01402; 36415; 73560; 80048; 82962; 82985; 83036; 83735; 85025; 85610; 85730; 86850; 86900; 86901; 87081; 88305; 88311; 93005; 97162; C1776; J2405; J3475

== ENCOUNTER → 2025-02-13 | Outpatient (CLI) | payer MEDICARE, SELFPAY ==
[2025-02-13 11:17] LABS: Hematocrit 46.5 % (37-47); Hemoglobin 15.7 g/dL (12.0-15.0); Immature Granulocytes Count 0.020 X10^3/uL (0.0-0.0); Mean Corp Hgb Conc 33.8 g/dL (32-36); Mean Corpuscular Volume 97.1 fL (81-99); Mean Platelet Vol. 11.1 fl (6.2-12.0); NRBC Flagged by Analyzer 0 % (0-5); Platelet Count 367 K/mm3 (150-450); RBC Distribution Width CV 12.9 % (11.6-14.6); RBC Distribution Width SD 46.3 fl (35.1-43.9); Red Blood Count 4.79 M/mm3 (4.2-5.4); White Blood Count 7.1 K/mm3 (4.4-11.0)
[2025-02-13 12:16] LABS: AST(SGOT) 23 U/L (<=31); Alanine Aminotransfer ALT/SGPT 22 U/L (<=34); Albumin, Serum 4.4 g/dL (3.4-4.8); Alkaline Phosphatase 69 U/L (35-104); Anion Gap 13 (5-15); BUN 25 mg/dL (4-19); BUN/Creat Ratio 31.7 RATIO (10-20); Calcium,Total 9.3 mg/dL (7.6-11.0); Carbon Dioxide 22.8 mmol/L (21.0-32.0); Chloride 102 mmol/L (98-108); Cholesterol 209 mg/dL (<=200); Globulin 2.5 g/dL (2.2-4.2); Glucose 109 mg/dL (70-99); Low Density Lipoprotein Calc. 97 mg/dL; Potassium 4.1 mmol/L (3.3-5.1); Triglycerides 177 mg/dL; Very Low Density Lipoprotein 35 mg/dL (5-40); cholesterol:hdl ratio screen 2.72
[2025-02-13 12:18] LABS: Vitamin D,25 Hydroxy 36.6 ng/mL (30-100)
== END | disposition home or self-care (01) ==
LOC: LAB 10:51
PROVIDERS: PCP Family Medicine; Referring Provider Family Medicine; Visit Provider Family Medicine
DX: E78.2 Mixed hyperlipidemia (principal); E55.9 Vitamin D deficiency, unspecified; Z51.81 Encounter for therapeutic drug level monitoring
CPT/HCPCS: 36415; 80053; 80061; 82306; 85025

== ENCOUNTER → 2025-06-13 | Outpatient (CLI) | payer MEDICARE, SELFPAY ==
--- NOTE | 2025-06-13 14:23 | BI_ITS ---
EXAM: SCRN MAMM (CAD)W/VANDANA BILAT DATE: 06/13/2025 CLINICAL HISTORY: F, Age 70 y/o , SCREENING TECHNIQUE: Procedure Code: [id number] Modality: MG Procedure: SCRN MAMM (CAD)W/VANDANA BILAT COMPARISON: Prior exam(s) dated June 12, 2024.. FINDINGS: TISSUE DENSITY: There are scattered areas of fibroglandular density. Bilateral Breast Mammographic Findings: No significant masses, calcifications or other abnormalities are identified. No suspicious masses, areas of developing architectural distortion, or suspicious calcifications. There has been no significant interval change. BI/SCRN MAMM (CAD)W/VANDANA BILAT IMPRESSION: Stable bilateral screening mammogram. OVERALL FINAL ASSESSMENT BI-RADS 1: NEGATIVE. RECOMMENDATION: Routine annual follow-up in 1 Year Additional Recommendation none A letter with findings and recommendations will be mailed to the patient. Reading Location: [place] [id number]
--- NOTE | 2025-06-13 14:23 | BD_ITS ---
PROCEDURE: DEXA BONE DENSITY STUDY 06/13/2025 REASON FOR EXAM: F, age 70 y/o . Postmenopausal. TECHNIQUE: Procedure Code: BDDBD Modality: DX Procedure: DEXA BONE DENSITY STUDY COMPARISON: None FINDINGS: BMD and T-SCORES Lumbar spine: 0.932 g/cm2, T-score -1.0 Levels: L1 through L4 Left femoral neck: 0.771 g/cm2, T-score -0.7 Femoral neck comparison data not recommended for monitoring change. Left total hip: 0.966 g/cm2, T-score 0.2 Right femoral neck: 0.865 g/cm2, T-score 0.1 Femoral neck comparison data not recommended for monitoring change. Right total hip: 1.000 g/cm2, T-score 0.5 The World Health Organization has defined the following categories based on bone density: Normal bone density: T-score equal to or greater than -1.0 Osteopenia: T-score between -1.0 and -2.5 Osteoporosis: T-score equal to or less than -2.5 FRAX (or Comparable) Fracture Risk Assessment: 10 Year Probability of Fracture: Major Osteoporotic Fracture: 7.5% Hip Fracture: 0.6% (Note: FRAX is not to be reported in setting of normal range bone density, osteoporosis on DEXA, known history of osteoporosis, prior osteoporotic hip or vertebral fracture, or for any patient undergoing pharmacological treatment for bone loss.) The National Osteoporosis Foundation (NOF) recommends pharmacological treatment for patients with a FRAX 10-year risk of 3% or higher for a hip fracture, or 20% or higher for a major osteoporotic fracture, to prevent osteoporosis and reduce fracture risk. The patient does not meet the pharmacological treatment recommendations for prevention of osteoporosis. BD/Dexa Bone Density Study IMPRESSION: NORMAL T-SCORES. Recommend follow-up as clinically warranted. Reading Location: [place] [id number]
== END | disposition home or self-care (01) ==
LOC: OPBD 14:22
PROVIDERS: PCP Family Medicine; Referring Provider Family Medicine; Visit Provider Family Medicine
DX: Z12.31 Encounter for screening mammogram for malignant neoplasm of breast (principal); M81.0 Age-related osteoporosis without current pathological fracture
CPT/HCPCS: 77063; 77067; 77080